=== PATIENT | female | born 1935 | race Caucasian/White ===

== ENCOUNTER 2019-02-22 02:13 | Emergency (ER) | payer OTHER ==
[~2019-02-22] VITALS: Ht 154.9 cm; Wt 98.8 kg
[~2019-02-22 02:13] MED LIST: ACET-2047 PO; AMLO2.5T78 PO; BENA20TA4 PO; CALC-143 PO; CRES20 PO; IBUP-1542 PO; OLME20TA20 PO; OMEP20CA9 PO; RIVA20TA5 PO; TRAM50TA2 PO
[2019-02-22 02:15] VITALS: Ht 154.9 cm; Wt 98.8 kg
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
[2019-02-22] MEDS ORDERED: IODIXANOL LOCM 100 ML BTL ONE (06:01)
[2019-02-22] MEDS ORDERED: SOD CHLORIDE 0.9% 100 ML ONE (06:01)
[2019-02-22 08:29] VITALS: BP 116/63; PULSE 71; RESP 18
== END 2019-02-22 08:37 | disposition home or self-care (01) ==
LOC: E/R 02:13 → MERGE 02:13 → E/R 08:37
DX: M54.2 Cervicalgia (principal)
CPT/HCPCS: 36415; 71045; 71275; 75635; 80053; 83880; 84484; 85025; 93005; 99285; Q9967